=== PATIENT | female | born 1955 | race Caucasian/White ===

== ENCOUNTER 2024-10-19 13:14 | Inpatient (IN) | payer MEDICARE ==
[~2024-10-19] VITALS: Ht 165.1 cm; Wt 86.4 kg
[2024-10-19] MEDS ORDERED: ZOLPIDEM TARTRATE 10 MG TABLET PO PRN (14:00)
[2024-10-19 14:24] LABS: PLATELET COUNT (AUTO) 248 K/uL (150-450); RED BLOOD CELL COUNT(AUTO) 6.14 MIL/uL (4.00-5.20); RED CELL DISTRIBUTION WIDTH 14.0 % (11.5-14.5); WHITE BLOOD COUNT (AUTO) 8.8 K/uL (4.5-11.0)
[2024-10-19 14:32] LABS: CALCIUM, TOTAL 9.9 mg/dL (8.8-10.5); CREATININE 1.38 mg/dL (0.60-1.30); GLOMERULAR FILTR. RATE CALC 38 mL/min (>60); GLUCOSE,RANDOM 164 mg/dL (70-110); SODIUM SERUM 140 mmol/L (136-145); UREA NITROGEN, BLOOD 27 mg/dL (7-18)
[2024-10-19 14:39] LABS: TROPONIN I-HIGH SENSITIVITY 10 ng/L (<51)
[2024-10-19 14:47] LABS: LACTIC ACID 2.8 mmol/L (0.4-2.0)
[2024-10-19 15:14] LABS: APPEARANCE,URINE TURBID (CLEAR); GLUCOSE, URINE (UA) NEGATIVE (NEGATIVE); LEUKOCYTE ESTERASE ,URINE LARGE (NEGATIVE); NITRATE,URINE POSITIVE (NEGATIVE); OCCULT BLOOD,URINE SMALL (NEGATIVE); SPECIFIC GRAVITIY, URINE 1.025 (1.003-1.030)
[2024-10-19] MEDS ORDERED: HYDROCODONE/ACETAMINOPHEN 5-325 MG TABLET PO PRN (15:15)
[2024-10-19] MEDS ORDERED: MORPHINE SULFATE 2 MG/ML SYRINGE IVP PRN (15:15)
[2024-10-19] MEDS ORDERED: BISACODYL 10 MG RECTAL RECTAL SUPPOSITORY PR PRN (15:15)
[2024-10-19] MEDS ORDERED: ZOLPIDEM TARTRATE 5 MG TABLET PO PRN (15:15)
[2024-10-19] MEDS ORDERED: ACETAMINOPHEN 325 MG TABLET PO PRN (15:15)
[2024-10-19] MEDS ORDERED: ONDANSETRON HCL 4 MG/2 ML VIAL IVP PRN (15:15)
[2024-10-19 15:22] LABS: SQUAMOUS EPITHELIAL CELL,UR Few /LPF (None Seen)
[2024-10-19 15:28] LABS: TROPONIN I-HIGH SENSITIVITY 9 ng/L (<51)
[2024-10-19] MEDS: HEPARIN SODIUM,PORCINE 5,000 UNITS/ML VIAL SQ SCH (15:32)
[2024-10-19] MEDS: SODIUM CHLORIDE 0.9% 1,000 ML IV SCH (15:47)
[2024-10-19] MEDS: SODIUM CHLORIDE 0.9% 1,800 ML IV ONE (16:19)
[2024-10-19] MEDS: CefTRIAXone 1 GM/DEXTROSE 50 ML IV ONE (16:23)
[2024-10-19 21:10] VITALS: BP 133/81; PULSE 82; RESP 18; TEMP 98.6; O2SAT 97
[2024-10-19] MEDS: DOCUSATE SODIUM 100 MG CAPSULE PO SCH (21:50)
[2024-10-20 07:31] VITALS: BP 119/65; PULSE 86; RESP 18; TEMP 97.7; O2SAT 95
[2024-10-20] MEDS: PANTOPRAZOLE SODIUM 40 MG DR TABLET PO SCH (08:52)
[2024-10-20 13:48] LABS: PLATELET COUNT (AUTO) 196 K/uL (150-450); RED BLOOD CELL COUNT(AUTO) 5.30 MIL/uL (4.00-5.20); RED CELL DISTRIBUTION WIDTH 14.1 % (11.5-14.5); WHITE BLOOD COUNT (AUTO) 5.3 K/uL (4.5-11.0)
[2024-10-20 13:55] LABS: CALCIUM, TOTAL 8.0 mg/dL (8.8-10.5); CREATININE 1.18 mg/dL (0.60-1.30); GLOMERULAR FILTR. RATE CALC 45.0 mL/min (>60); GLUCOSE,RANDOM 231.0 mg/dL (70-110); SODIUM SERUM 140.0 mmol/L (136-145); UREA NITROGEN, BLOOD 19.0 mg/dL (7-18)
[2024-10-20 15:38] VITALS: BP 131/70; PULSE 89; RESP 18; TEMP 97.7; O2SAT 98
[2024-10-20] MEDS ORDERED: GLIM-8 PO (16:50)
[2024-10-20] MEDS ORDERED: BUPR-50 PO (16:56)
[2024-10-20] MEDS ORDERED: DIVA125C20 PO (16:58)
[2024-10-20] MEDS ORDERED: DEXT38GE12 PO (17:05)
[2024-10-20] MEDS ORDERED: LOSA-382 PO (17:05)
[2024-10-20] MEDS ORDERED: INSLAN SQ (17:05)
[2024-10-20] MEDS ORDERED: SITA50 PO (17:05)
[2024-10-20] MEDS ORDERED: METF-1211 PO (17:08)
[2024-10-20] MEDS ORDERED: MAGN-169 PO (17:11)
[2024-10-20] MEDS ORDERED: NYST15PO3 TP (17:12)
[2024-10-20] MEDS ORDERED: DEXTROSE 50%-WATER 25 GM/50 ML SYRINGE IVP PRN (18:15)
[2024-10-20 19:31] VITALS: BP 128/61; PULSE 94; RESP 18; TEMP 98.1; O2SAT 97
[2024-10-20] MEDS: INSULIN LISPRO 100 UNITS/ML SQ PRN (20:28)
[2024-10-21 01:41] LABS: GLUCOMETER DEV NAME(LOC) 6N.1B; GLUCOSE,POINT OF CARE 177 MG/DL (70-110)
[2024-10-21 04:27] VITALS: BP 128/71; PULSE 80; RESP 18; TEMP 97.9; O2SAT 96
[2024-10-21 07:52] VITALS: BP 112/63; PULSE 72; RESP 18; TEMP 97.7; O2SAT 98
[2024-10-21 09:39] LABS: PLATELET COUNT (AUTO) 204 K/uL (150-450); RED BLOOD CELL COUNT(AUTO) 5.39 MIL/uL (4.00-5.20); RED CELL DISTRIBUTION WIDTH 14.0 % (11.5-14.5); WHITE BLOOD COUNT (AUTO) 5.4 K/uL (4.5-11.0)
[2024-10-21 09:41] LABS: CALCIUM, TOTAL 8.2 mg/dL (8.8-10.5); CREATININE 1.04 mg/dL (0.60-1.30); GLOMERULAR FILTR. RATE CALC 52.0 mL/min (>60); GLUCOSE,RANDOM 120.0 mg/dL (70-110); SODIUM SERUM 140.0 mmol/L (136-145); UREA NITROGEN, BLOOD 18.0 mg/dL (7-18)
[2024-10-21 09:47] LABS: CHOL/HDL RATIO 5.7 (3.9-5.7); LDL CHOL (CALC.) 125.0 mg/dL (0-130)
[2024-10-21 11:21] LABS: GLUCOMETER DEV NAME(LOC) 6N.1B; GLUCOSE,POINT OF CARE 141 MG/DL (70-110)
[2024-10-21 16:03] VITALS: BP 137/84; PULSE 74; RESP 18; TEMP 97.7; O2SAT 97
[2024-10-21 19:40] LABS: GLUCOMETER DEV NAME(LOC) 6N.1B; GLUCOSE,POINT OF CARE 155 MG/DL (70-110)
[2024-10-21 19:40] LABS: GLUCOMETER DEV NAME(LOC) 6N.1B; GLUCOSE,POINT OF CARE 159 MG/DL (70-110)
[2024-10-21 20:09] VITALS: BP 135/67; PULSE 93; RESP 18; TEMP 96.8; O2SAT 96
[2024-10-21 22:21] LABS: GLUCOMETER DEV NAME(LOC) 4E.2; GLUCOSE,POINT OF CARE 149 MG/DL (70-110)
[2024-10-22 04:30] VITALS: BP 127/69; PULSE 80; RESP 18; TEMP 97.3; O2SAT 97
[2024-10-22 07:39] VITALS: BP 117/80; PULSE 78; RESP 18; TEMP 98.2; O2SAT 97
[2024-10-22 09:35] LABS: PLATELET COUNT (AUTO) 190 K/uL (150-450); RED BLOOD CELL COUNT(AUTO) 5.31 MIL/uL (4.00-5.20); RED CELL DISTRIBUTION WIDTH 13.7 % (11.5-14.5); WHITE BLOOD COUNT (AUTO) 5.2 K/uL (4.5-11.0)
[2024-10-22 09:46] LABS: CALCIUM, TOTAL 7.9 mg/dL (8.8-10.5); CREATININE 1.1 mg/dL (0.60-1.30); GLOMERULAR FILTR. RATE CALC 49.0 mL/min (>60); GLUCOSE,RANDOM 207.0 mg/dL (70-110); SODIUM SERUM 139.0 mmol/L (136-145); UREA NITROGEN, BLOOD 17.0 mg/dL (7-18)
[2024-10-22 13:20] LABS: GLUCOMETER DEV NAME(LOC) 6N.1B; GLUCOSE,POINT OF CARE 146 MG/DL (70-110)
[2024-10-22 13:20] LABS: GLUCOMETER DEV NAME(LOC) 6N.1B; GLUCOSE,POINT OF CARE 164 MG/DL (70-110)
[2024-10-22 15:00] VITALS: BP 108/68; PULSE 73; RESP 19; TEMP 98.2; O2SAT 99
[2024-10-22] MEDS: CEPHALEXIN MONOHYDRATE 500 MG CAPSULE PO SCH (16:24)
[2024-10-22 18:50] LABS: GLUCOMETER DEV NAME(LOC) 6N.1B; GLUCOSE,POINT OF CARE 128 MG/DL (70-110)
[2024-10-22 19:18] VITALS: BP 140/88; PULSE 86; RESP 18; TEMP 98.2; O2SAT 96
[2024-10-23 04:40] VITALS: BP 133/74; PULSE 82; RESP 18; TEMP 98.3; O2SAT 96
[2024-10-23 08:32] VITALS: BP 122/72; PULSE 84; RESP 18; TEMP 98; O2SAT 96
[2024-10-23 13:50] LABS: GLUCOMETER DEV NAME(LOC) 6N.1B; GLUCOSE,POINT OF CARE 181 MG/DL (70-110)
[2024-10-23 15:12] VITALS: BP 131/74; PULSE 78; RESP 18; TEMP 98; O2SAT 98
[2024-10-23] MEDS: MAGNESIUM HYDROXIDE SUSPENSION 30 ML UDCUP PO PRN (16:08)
[2024-10-23] MEDS ORDERED: CEPH-558 PO (16:21)
[2024-10-23] MEDS ORDERED: HALO5TAB23 PO (16:24)
[2024-10-23 19:37] VITALS: BP 143/84; PULSE 74; RESP 18; TEMP 98.4; O2SAT 96
[2024-10-23 19:55] VITALS: BP 149/88; PULSE 74; RESP 18; TEMP 98.4; O2SAT 96
[2024-10-23 20:20] LABS: GLUCOMETER DEV NAME(LOC) 4E.2; GLUCOSE,POINT OF CARE 171 MG/DL (70-110)
[2024-10-23 22:26] LABS: GLUCOMETER DEV NAME(LOC) 6N.1B; GLUCOSE,POINT OF CARE 152 MG/DL (70-110)
[2024-10-23 22:26] LABS: GLUCOMETER DEV NAME(LOC) 6N.1B; GLUCOSE,POINT OF CARE 207 MG/DL (70-110)
== END 2024-10-23 21:28 | DRG 871 ==
LOC: EMS 13:14 → EDH 15:13 → 4E 20:50
PROVIDERS: ADMIT Internal Medicine; ATTEND Internal Medicine
DX: A41.9 Sepsis, unspecified organism (principal); G93.41 Metabolic encephalopathy; N17.9 Acute kidney failure, unspecified; N39.0 Urinary tract infection, site not specified; I10 Essential (primary) hypertension; F32.9 Major depressive disorder, single episode, unspecified; E78.00 Pure hypercholesterolemia, unspecified; E03.9 Hypothyroidism, unspecified; R62.7 Adult failure to thrive; R29.6 Repeated falls; E11.39 Type 2 diabetes mellitus with other diabetic ophthalmic complication; Z79.84 Long term (current) use of oral hypoglycemic drugs; Z79.899 Other long term (current) drug therapy; Z68.31 Body mass index [BMI] 31.0-31.9, adult
CPT/HCPCS: 71045; 80048; 80061; 81001; 82962; 83036; 83605; 83690; 84145; 84484; 85025; 85610; 87040; 87086; 93005; 97163; 97530; 99291; G0378; J0696; J1644; J7030; 36415-L1; 36415-TC